=== PATIENT | female | born 1980 | race Caucasian/White ===

== ENCOUNTER 2023-01-28 20:28 | Observation (INO) | payer BC, MEDICAID ==
[~2023-01-28] VITALS: Ht 165.1 cm; Wt 98.4 kg
[2023-01-28] MEDS ORDERED: ONDANSETRON HCL 4 MG/2 ML VIAL IVP PRN (21:15)
[2023-01-28] MEDS ORDERED: D5/0.45 NS 1,000 ML IV SCH (21:15)
[2023-01-28] MEDS ORDERED: HYDROmorphone 1 MG/ML INJ. CARTRIDGE IVP PRN (21:15)
[2023-01-28] MEDS ORDERED: BETAMET ACET/BETAMET NA PH 30 MG/5 ML VIAL IM ONE (21:15)
[2023-01-28 22:02] LABS: BILIRUBIN,URINE 1+ (NEGATIVE); BLOOD, URINE NEGATIVE (NEGATIVE); CLARITY/URINE HAZY (CLEAR); COLOR,URINE YELLOW (YELLOW); GLUCOSE,URINE NEGATIVE (NEGATIVE); KETONES,URINE 3+ (NEGATIVE); LEUKOCYTE ESTERASE ,URINE 1+ (NEGATIVE); NITRITE, URINE NEGATIVE (NEGATIVE); PROTEIN URINE 2+ (NEGATIVE); UROBILINOGEN,URINE 0.2 (0.2-1.0)
[2023-01-28 22:04] LABS: BACTERIA,URINE FEW /HPF (None Seen); CALCIUM OXALATE CRYSTALS,UR 0-10 /HPF (None Seen); RBC,URINE 0-3 /HPF (0-3)
[2023-01-28 22:05] LABS: MUCUS,URINE None Seen /LPF (None Seen)
[2023-01-28] MEDS ORDERED: TEMAZEPAM 7.5 MG CAPSULE PO PRN (22:45)
[2023-01-28] MEDS ORDERED: NITROFURANTOIN MONOHYD/M-CRYST 100 MG CAPSULE (MacroBID) PO ONE (22:45)
[2023-01-28] MEDS: MORPHINE SULFATE 10 MG/ML VIAL IM PRN (22:56)
[2023-01-29] MEDS: D5/0.45 NS 1,000 ML IV SCH ×2 (02:32→22:16)
[2023-01-29] MEDS: MORPHINE SULFATE 10 MG/ML VIAL IM PRN ×3 (03:02→19:47)
[2023-01-29 07:46] LABS: HEMOGLOBIN 8.9 g/dL (12.0-16.0); LYMPHOCYTES # (AUTO) 0.5 K/uL (1.0-5.5); LYMPHOCYTES % (AUTO) 3.2 % (20.5-51.5); MEAN CORPUSCULAR HEMOGLOBIN 32 pg (27-31); MEAN CORPUSCULAR HGB CONC 34 % (32-36); MEAN CORPUSCULAR VOLUME 94 fL (79.0-98.0); MONOCYTES # (AUTO) 1.2 K/uL (0.0-1.0); MONOCYTES % (AUTO) 7.5 % (1.7-9.3); NEUTROPHILS # (AUTO) 14.3 K/uL (1.8-7.7); NEUTROPHILS % (AUTO) 89.3 % (40.0-70.0); PLATELET COUNT (AUTO) 169 K/uL (130-430); RED BLOOD CELL COUNT(AUTO) 2.76 MIL/uL (4.2-6.2); RED CELL DISTRIBUTION WIDTH 15.9 % (9.0-15.0); WHITE BLOOD COUNT (AUTO) 16.1 K/uL (4.8-10.8)
[2023-01-29 08:10] VITALS: BP_SYST 107
[2023-01-29 08:13] LABS: ALBUMIN 2.1 g/dL (3.4-4.8); CREATININE 1.35 mg/dL (0.55-1.30); TOTAL BILIRUBIN 0.6 mg/dL (0.0-1.0)
[2023-01-29] MEDS: NITROFURANTOIN MONOHYD/M-CRYST 100 MG CAPSULE (MacroBID) PO SCH (21:44)
[2023-01-29] MEDS ORDERED: BETAMET ACET/BETAMET NA PH 30 MG/5 ML VIAL IM ONE (21:45)
[2023-01-30] MEDS ORDERED: NS IRRIG SOLN 1000 ML IR ONE (09:00)
[2023-01-30] MEDS ORDERED: LIDOCAINE/EPI 1% 1:100000 20 ML VIAL INJ ONE (09:00)
[2023-01-30] MEDS: NITROFURANTOIN MONOHYD/M-CRYST 100 MG CAPSULE (MacroBID) PO SCH ×2 (09:20→22:23)
[2023-01-30] MEDS: MORPHINE SULFATE 10 MG/ML VIAL IM PRN ×2 (10:54→19:02)
[2023-01-30] MEDS ORDERED: PHYTONADIONE 1 MG/0.5 ML SYR IM ONE (19:45)
[2023-01-30] MEDS ORDERED: HEPATITIS B VIRUS VACCINE-PF PED 10 MCG/0.5 ML I.M. ONE (19:45)
[2023-01-30] MEDS ORDERED: ERYTHROMYCIN BASE 0.5% EYE OINT...G. OP ONE (19:45)
[2023-01-30] MEDS ORDERED: TEMAZEPAM 15 MG CAPSULE PO PRN (22:45)
[2023-01-31] MEDS: MORPHINE SULFATE 10 MG/ML VIAL IM PRN ×2 (01:36→13:44)
[2023-01-31] MEDS: D5/0.45 NS 1,000 ML IV SCH (04:43)
[2023-01-31] MEDS: NITROFURANTOIN MONOHYD/M-CRYST 100 MG CAPSULE (MacroBID) PO SCH (09:13)
== END 2023-01-31 17:30 | disposition home or self-care (01) ==
LOC: SPU 20:28
PROVIDERS: ADMIT Specialist; ATTEND Specialist
DX: O26.893 Other specified pregnancy related conditions, third trimester (principal); Z20.822 Contact with and (suspected) exposure to COVID-19; R10.9 Unspecified abdominal pain; O21.2 Late vomiting of pregnancy; O99.891 Other specified diseases and conditions complicating pregnancy; M54.50 Low back pain, unspecified; O30.003 Twin pregnancy, unspecified number of placenta and unspecified number of amniotic sacs, third trimester; Z3A.30 30 weeks gestation of pregnancy; Z88.0 Allergy status to penicillin
CPT/HCPCS: 96361 ×4; 96372 ×4; 81000; 87086; 80053; 85025; 36415 ×2; 76770; 96374; 87426; J0702; J2270 ×4; G0378 ×4; J1170

== ENCOUNTER 2023-02-02 15:49 | Inpatient (IN) | payer BC ==
[~2023-02-02] VITALS: Ht 165.1 cm; Wt 98.0 kg
[2023-02-02] MEDS ORDERED: D5/0.45 NS 1,000 ML IV ONE (17:30)
[2023-02-02] MEDS ORDERED: NALOXONE HCL 0.4 MG/ML AMP (NARCAN) IVP PRN (17:30)
[2023-02-02] MEDS: MORPHINE SULFATE 10 MG/ML VIAL IM PRN ×2 (17:38→22:07)
[2023-02-02 17:45] LABS: COLOR,URINE YELLOW (YELLOW); GLUCOSE,URINE NEGATIVE (NEGATIVE); KETONES,URINE 3+ (NEGATIVE); LEUKOCYTE ESTERASE ,URINE 1+ (NEGATIVE); NITRITE, URINE NEGATIVE (NEGATIVE); PROTEIN URINE TRACE (NEGATIVE); UROBILINOGEN,URINE 0.2 (0.2-1.0)
[2023-02-02 18:03] LABS: BASOPHILS % (AUTO) 0.1 % (0.0-2.0); EOSINOPHILS % (AUTO) 0.3 % (0.0-4.0); HEMATOCRIT 26.1 % (36-48); HEMOGLOBIN 9.1 g/dL (12.0-16.0); LYMPHOCYTES # (AUTO) 1.4 K/uL (1.0-5.5); LYMPHOCYTES % (AUTO) 12.9 % (20.5-51.5); MEAN CORPUSCULAR HEMOGLOBIN 33 pg (27-31); MEAN CORPUSCULAR HGB CONC 35 % (32-36); MEAN CORPUSCULAR VOLUME 93 fL (79.0-98.0); MONOCYTES % (AUTO) 9.8 % (1.7-9.3); NEUTROPHILS # (AUTO) 8.1 K/uL (1.8-7.7); NEUTROPHILS % (AUTO) 76.9 % (40.0-70.0); PLATELET COUNT (AUTO) 168 K/uL (130-430); RED CELL DISTRIBUTION WIDTH 15.7 % (9.0-15.0); WHITE BLOOD COUNT (AUTO) 10.5 K/uL (4.8-10.8)
[2023-02-02 18:04] LABS: BILIRUBIN,URINE NEGATIVE (NEGATIVE); BLOOD, URINE TRACE (NEGATIVE); CLARITY/URINE SLIGHTLY HAZY (CLEAR)
[2023-02-02 18:15] LABS: BACTERIA,URINE FEW /HPF (None Seen); MUCUS,URINE 1+ /LPF (None Seen); RBC,URINE 0-3 /HPF (0-3)
[2023-02-02 18:25] LABS: CALCIUM 8.3 mg/dL (8.4-11.0); TOTAL BILIRUBIN 0.5 mg/dL (0.0-1.0)
[2023-02-02 18:41] VITALS: BP_SYST 132
[2023-02-03] MEDS: D5/0.45 NS 1,000 ML IV SCH ×2 (02:49→13:22)
[2023-02-03] MEDS: MORPHINE SULFATE 10 MG/ML VIAL IM PRN ×4 (03:06→20:32)
[2023-02-03] MEDS: DOCUSATE SODIUM 100 MG CAPSULE PO SCH (10:35)
[2023-02-03] MEDS ORDERED: SENNOSIDES 8.6 MG TABLET PO ONE (14:15)
[2023-02-03 15:47] LABS: BILIRUBIN,URINE NEGATIVE (NEGATIVE); BLOOD, URINE 1+ (NEGATIVE); CLARITY/URINE CLEAR (CLEAR); COLOR,URINE YELLOW (YELLOW); GLUCOSE,URINE NEGATIVE (NEGATIVE); KETONES,URINE NEGATIVE (NEGATIVE); LEUKOCYTE ESTERASE ,URINE 1+ (NEGATIVE); NITRITE, URINE NEGATIVE (NEGATIVE); PH,URINE 6.5 (5.0-8.0); PROTEIN URINE NEGATIVE (NEGATIVE)
[2023-02-03 16:26] LABS: BACTERIA,URINE FEW /HPF (None Seen)
[2023-02-03 16:27] LABS: MUCUS,URINE None Seen /LPF (None Seen)
[2023-02-03] MEDS: SENNOSIDES 8.6 MG TABLET PO SCH (20:31)
[2023-02-03] MEDS ORDERED: SENNOSIDES 8.6 MG TABLET PO SCH (21:00)
[2023-02-04] MEDS: MORPHINE SULFATE 10 MG/ML VIAL IM PRN ×3 (03:22→19:32)
[2023-02-04] MEDS: D5/0.45 NS 1,000 ML IV SCH ×3 (06:45→19:37)
[2023-02-04] MEDS: SENNOSIDES 8.6 MG TABLET PO SCH (21:00)
[2023-02-05] MEDS: SENNOSIDES 8.6 MG TABLET PO SCH ×3 (02:48→20:38)
[2023-02-05] MEDS: D5/0.45 NS 1,000 ML IV SCH (06:45)
[2023-02-05] MEDS: MORPHINE SULFATE 10 MG/ML VIAL IM PRN ×2 (06:54→17:35)
[2023-02-05] MEDS: DOCUSATE SODIUM 100 MG CAPSULE PO SCH (09:30)
[2023-02-05] MEDS ORDERED: BISACODYL 10 MG/SUPPOSITORY RC PRN (16:00)
[2023-02-05] MEDS ORDERED: PHENYLEPH/MINERAL OIL/PETROLAT 57 GM OINT.APPL TP PRN (20:15)
[2023-02-06] MEDS: MORPHINE SULFATE 10 MG/ML VIAL IM PRN ×2 (03:30→20:52)
[2023-02-06] MEDS: TAMSULOSIN HCL 0.4 MG CAP PO SCH (08:27)
[2023-02-07] MEDS: TAMSULOSIN HCL 0.4 MG CAP PO SCH (09:21)
[2023-02-07] MEDS ORDERED: HYDROcodone/ACETAMIN 10-325 MG TAB PO PRN (12:15)
[2023-02-07] MEDS ORDERED: NALOXONE HCL 0.4 MG/ML AMP (NARCAN) IVP PRN (12:15)
[2023-02-07] MEDS: SENNOSIDES 8.6 MG TABLET PO SCH (20:30)
[2023-02-08] MEDS: SENNOSIDES 8.6 MG TABLET PO SCH (08:41)
[2023-02-08] MEDS: TAMSULOSIN HCL 0.4 MG CAP PO SCH (08:59)
[2023-02-08] MEDS: HYDROcodone/ACETAMIN 5-325 MG TAB (NORCO/ VICODIN) PO PRN (09:03)
[2023-02-09] MEDS: HYDROcodone/ACETAMIN 5-325 MG TAB (NORCO/ VICODIN) PO PRN ×3 (00:01→21:13)
[2023-02-09] MEDS: TAMSULOSIN HCL 0.4 MG CAP PO SCH (08:51)
[2023-02-10] MEDS: TAMSULOSIN HCL 0.4 MG CAP PO SCH (09:11)
[2023-02-11] MEDS: TAMSULOSIN HCL 0.4 MG CAP PO SCH (08:42)
== END 2023-02-11 11:44 | disposition home or self-care (01) | DRG 832 ==
LOC: OBSVTOIN 16:30 → SPU 16:30
PROVIDERS: ADMIT Specialist; ATTEND Specialist
DX: O30.003 Twin pregnancy, unspecified number of placenta and unspecified number of amniotic sacs, third trimester (principal); N13.30 Unspecified hydronephrosis; O26.833 Pregnancy related renal disease, third trimester; N23 Unspecified renal colic; Z20.822 Contact with and (suspected) exposure to COVID-19; Z3A.31 31 weeks gestation of pregnancy; Z88.6 Allergy status to analgesic agent; Z88.0 Allergy status to penicillin
CPT/HCPCS: 36415; 76770; 80053; 81000; 85025; 87086; J2270

== ENCOUNTER 2023-03-19 05:04 | Inpatient (IN) | payer BC ==
[~2023-03-19] VITALS: Ht 162.6 cm; Wt 101.6 kg
[2023-03-19] MEDS ORDERED: NALBUPHINE HCL 10 MG/ML AMP IVP PRN (06:15)
[2023-03-19] MEDS ORDERED: TERBUTALINE SULFATE 1 MG/ML VIAL SUBCUT ONE (06:15)
[2023-03-19 06:35] VITALS: BP_SYST 126
[2023-03-19 06:37] LABS: BASOPHILS % (AUTO) 0.1 % (0.0-2.0); EOSINOPHILS # (AUTO) 0.1 K/uL (0.0-0.4); EOSINOPHILS % (AUTO) 1.1 % (0.0-4.0); HEMATOCRIT 26.3 % (36-48); LYMPHOCYTES # (AUTO) 1.4 K/uL (1.0-5.5); LYMPHOCYTES % (AUTO) 23.3 % (20.5-51.5); MEAN CORPUSCULAR HEMOGLOBIN 31 pg (27-31); MEAN CORPUSCULAR HGB CONC 34 % (32-36); MEAN CORPUSCULAR VOLUME 92 fL (79.0-98.0); MONOCYTES # (AUTO) 0.6 K/uL (0.0-1.0); MONOCYTES % (AUTO) 9.3 % (1.7-9.3); NEUTROPHILS # (AUTO) 3.9 K/uL (1.8-7.7); NEUTROPHILS % (AUTO) 66.2 % (40.0-70.0); PLATELET COUNT (AUTO) 172 K/uL (130-430); RED BLOOD CELL COUNT(AUTO) 2.87 MIL/uL (4.2-6.2); RED CELL DISTRIBUTION WIDTH 15.1 % (9.0-15.0)
[2023-03-19] MEDS: OXYTOCIN/0.9 % SODIUM CHLORIDE 1,000 ML IV SCH (08:32)
[2023-03-19] MEDS: LR 1,000 ML IV SCH ×3 (10:15→18:37)
[2023-03-19] MEDS ORDERED: LIGHT MINERAL OIL 10 ML VIAL MC ONE (14:04)
[2023-03-19] MEDS ORDERED: LIDOCAINE PF 1% 30ML(POUR BTL) INJ ONE (14:04)
[2023-03-19] MEDS ORDERED: ROPIVACAINE HCL/PF 0.2% 200 ML ONE (14:05)
[2023-03-19] MEDS ORDERED: NALOXONE HCL 0.4 MG/ML AMP (NARCAN) ONE (14:05)
[2023-03-19] MEDS ORDERED: fentaNYL CITRATE/PF 100 MCG/2 ML AMP ONE (14:05)
[2023-03-19] MEDS ORDERED: FENT2mCg/mL-ROPIVA0.2%/NS EPID 200 ML EP SCH (15:30)
[2023-03-19] MEDS ORDERED: LR 500 ML IV ONE (15:30)
[2023-03-19] MEDS ORDERED: HYDROcodone/ACETAMIN 5-325 MG TAB (NORCO/ VICODIN) PO PRN (22:45)
[2023-03-20] MEDS: LR 1,000 ML IV SCH (00:05)
[2023-03-20] MEDS ORDERED: ROPIVACAINE HCL/PF 0.2% 200 ML ONE (01:05)
[2023-03-20] MEDS ORDERED: CLINDAMYCIN 900 mg/50mL D5W 50 ML IV ONE (02:11)
[2023-03-20] MEDS ORDERED: CLINDAMYCIN 900 MG in D5W 100 ML IV SCH (02:15)
[2023-03-20] MEDS: OXYTOCIN/0.9 % SODIUM CHLORIDE 1,000 ML IV SCH (02:16)
[2023-03-20] MEDS ORDERED: CEFAZOLIN 2 GM IVPB PREMIX 50 ML IV ONE (04:30)
[2023-03-20] MEDS: HYDROmorphone 2 MG/ML VIAL IVP PRN ×2 (04:59→19:24)
[2023-03-20] MEDS ORDERED: METHYLERGONOVINE MALEATE 0.2 MG/ML AMP IM ONE (05:00)
[2023-03-20 05:02] LABS: BILIRUBIN,URINE 1+ (NEGATIVE); BLOOD, URINE 3+ (NEGATIVE); CLARITY/URINE SL CLOUDY (CLEAR); GLUCOSE,URINE NEGATIVE (NEGATIVE); KETONES,URINE 1+ (NEGATIVE); LEUKOCYTE ESTERASE ,URINE TRACE (NEGATIVE); NITRITE, URINE POSITIVE (NEGATIVE); PROTEIN URINE 3+ (NEGATIVE)
[2023-03-20 05:07] LABS: COLOR,URINE AMBER (YELLOW)
[2023-03-20 05:37] LABS: RBC,URINE >100 /HPF (0-3)
[2023-03-20 05:38] LABS: BACTERIA,URINE MANY /HPF (None Seen)
[2023-03-20] MEDS ORDERED: OXYTOCIN/0.9 % SODIUM CHLORIDE 1,000 ML IV SCH ×2 (06:15→10:15)
[2023-03-20] MEDS ORDERED: METHYLERGONOVINE MALEATE 0.2 MG/ML AMP ONE (08:05)
[2023-03-20] MEDS ORDERED: LANOLIN 7 GM OINT. TP PRN (08:45)
[2023-03-20] MEDS ORDERED: HYDROcodone/ACETAMIN 5-325 MG TAB (NORCO/ VICODIN) PO PRN (08:45)
[2023-03-20] MEDS ORDERED: MEASLES,MUMPS&RUBELLA VACC/PF 12500 UNIT/0.5 ML VIAL SUBQ PRN (08:45)
[2023-03-20] MEDS ORDERED: DIPHTH,PERTUSS(ACELL),TET VAC 0.5 ML VIAL (Tdap) I.M. PRN (08:45)
[2023-03-20] MEDS ORDERED: OXYTOCIN/0.9 % SODIUM CHLORIDE 1,000 ML IV ONE (08:45)
[2023-03-20] MEDS ORDERED: SIMETHICONE 80 MG TAB.CHEW PO PRN (08:45)
[2023-03-20] MEDS ORDERED: NALOXONE HCL 0.4 MG/ML AMP (NARCAN) IVP PRN ×3 (08:45→09:15)
[2023-03-20] MEDS ORDERED: BISACODYL 10 MG/SUPPOSITORY RC PRN (08:45)
[2023-03-20] MEDS ORDERED: RHO(D) IMMUNE GLOBULIN/MALTOSE 1500 UNITS/1.3 ML (WINHRO) IM PRN (08:45)
[2023-03-20 08:57] LABS: HEMATOCRIT 26.5 % (36-48); HEMOGLOBIN 8.7 g/dL (12.0-16.0); LYMPHOCYTES # (AUTO) 0.7 K/uL (1.0-5.5); LYMPHOCYTES % (AUTO) 5.1 % (20.5-51.5); MEAN CORPUSCULAR HEMOGLOBIN 31 pg (27-31); MEAN CORPUSCULAR HGB CONC 33 % (32-36); MEAN CORPUSCULAR VOLUME 93 fL (79.0-98.0); MONOCYTES % (AUTO) 6.8 % (1.7-9.3); NEUTROPHILS # (AUTO) 12.5 K/uL (1.8-7.7); NEUTROPHILS % (AUTO) 88.1 % (40.0-70.0); PLATELET COUNT (AUTO) 171 K/uL (130-430); RED BLOOD CELL COUNT(AUTO) 2.84 MIL/uL (4.2-6.2); RED CELL DISTRIBUTION WIDTH 14.9 % (9.0-15.0); WHITE BLOOD COUNT (AUTO) 14.2 K/uL (4.8-10.8)
[2023-03-20 08:59] VITALS: BP_SYST 146
[2023-03-20] MEDS ORDERED: NS IRRIG SOLN 1000 ML IR ONE (09:05)
[2023-03-20] MEDS ORDERED: LIDOCAINE/EPI 1% 1:100000 20 ML VIAL ONE (09:05)
[2023-03-20] MEDS ORDERED: ePHEDrine sulfate 50 MG/ML VIAL ONE (09:05)
[2023-03-20] MEDS ORDERED: WATER FOR IRRIGATION,STERILE 1,000 ML IRRIG.SOLN IR ONE (09:05)
[2023-03-20] MEDS ORDERED: fentaNYL CITRATE/PF 100 MCG/2 ML AMP IVP ONE (09:05)
[2023-03-20] MEDS ORDERED: LR 1,000 ML IV.SOLN IV ONE (09:05)
[2023-03-20] MEDS ORDERED: ONDANSETRON HCL 4 MG/2 ML VIAL ONE (09:05)
[2023-03-20] MEDS ORDERED: METOCLOPRAMIDE HCL 10 MG/2 ML VIAL ONE (09:05)
[2023-03-20] MEDS ORDERED: BUPIVACAINE /PF 0.75% 10 ML VIAL INJ ONE (09:05)
[2023-03-20] MEDS ORDERED: MORPHINE SULFATE 10MG/10ML PF AMP EP ONE (09:05)
[2023-03-20] MEDS ORDERED: METOCLOPRAMIDE HCL 10 MG/2 ML VIAL IVP PRN (09:15)
[2023-03-20] MEDS ORDERED: ONDANSETRON HCL 4 MG/2 ML VIAL IVP PRN ×2 (09:15)
[2023-03-20] MEDS ORDERED: HYDROmorphone 1 MG/ML INJ. CARTRIDGE IVP PRN (09:15)
[2023-03-20] MEDS ORDERED: MEPERIDINE HCL/PF 25 MG/ML DISP.SYRIN IVP PRN ×3 (09:15→18:45)
[2023-03-20] MEDS ORDERED: DIPHENHYDRAMINE INJ 50 MG/ML VIAL IM PRN (09:15)
[2023-03-20] MEDS ORDERED: OXYTOCIN IV SCH (10:30)
[2023-03-20] MEDS ORDERED: LR IV SCH (10:30)
[2023-03-20] MEDS ORDERED: METHYLERGONOVINE MALEATE IV SCH (10:30)
[2023-03-20] MEDS: CLINDAMYCIN 600 mg/50mL D5W 50 ML IV SCH ×2 (12:00→18:17)
[2023-03-20 18:22] LABS: BASOPHILS % (AUTO) 0.2 % (0.0-2.0); EOSINOPHILS % (AUTO) 0.1 % (0.0-4.0); HEMOGLOBIN 8.9 g/dL (12.0-16.0); LYMPHOCYTES # (AUTO) 1.6 K/uL (1.0-5.5); LYMPHOCYTES % (AUTO) 10.9 % (20.5-51.5); MEAN CORPUSCULAR HEMOGLOBIN 31 pg (27-31); MEAN CORPUSCULAR HGB CONC 34 % (32-36); MONOCYTES # (AUTO) 1.1 K/uL (0.0-1.0); MONOCYTES % (AUTO) 7.4 % (1.7-9.3); NEUTROPHILS # (AUTO) 12.3 K/uL (1.8-7.7); NEUTROPHILS % (AUTO) 81.4 % (40.0-70.0); PLATELET COUNT (AUTO) 149 K/uL (130-430); RED BLOOD CELL COUNT(AUTO) 2.91 MIL/uL (4.2-6.2); RED CELL DISTRIBUTION WIDTH 16.4 % (9.0-15.0); WHITE BLOOD COUNT (AUTO) 15.1 K/uL (4.8-10.8)
[2023-03-20 18:23] LABS: MEAN CORPUSCULAR VOLUME 89 fL (79.0-98.0)
[2023-03-20] MEDS ORDERED: TEMAZEPAM 15 MG CAPSULE PO PRN (21:00)
[2023-03-21] MEDS ORDERED: CLINDAMYCIN 900 MG in D5W 100 ML IV ONE (00:45)
[2023-03-21] MEDS ORDERED: CLINDAMYCIN 900 mg/50mL D5W 50 ML IV ONE (00:53)
[2023-03-21] MEDS: SIMETHICONE 80 MG TAB.CHEW PO SCH ×3 (04:14→21:17)
[2023-03-21] MEDS: OXYCODONE/ACETAMINOPHEN 5-325 TABLET PO PRN ×3 (04:15→21:14)
[2023-03-21 07:08] LABS: BASOPHILS % (AUTO) 0.1 % (0.0-2.0); EOSINOPHILS % (AUTO) 0.2 % (0.0-4.0); HEMATOCRIT 22.6 % (36-48); HEMOGLOBIN 7.6 g/dL (12.0-16.0); LYMPHOCYTES # (AUTO) 0.9 K/uL (1.0-5.5); LYMPHOCYTES % (AUTO) 8.8 % (20.5-51.5); MEAN CORPUSCULAR HEMOGLOBIN 30 pg (27-31); MEAN CORPUSCULAR HGB CONC 34 % (32-36); MEAN CORPUSCULAR VOLUME 90 fL (79.0-98.0); MONOCYTES # (AUTO) 0.7 K/uL (0.0-1.0); MONOCYTES % (AUTO) 6.8 % (1.7-9.3); NEUTROPHILS % (AUTO) 84.1 % (40.0-70.0); PLATELET COUNT (AUTO) 133 K/uL (130-430); RED BLOOD CELL COUNT(AUTO) 2.52 MIL/uL (4.2-6.2); RED CELL DISTRIBUTION WIDTH 16.2 % (9.0-15.0); WHITE BLOOD COUNT (AUTO) 10.7 K/uL (4.8-10.8)
[2023-03-21] MEDS: DOCUSATE SODIUM 100 MG CAPSULE PO SCH ×3 (09:00→21:16)
[2023-03-21] MEDS: SENNOSIDES/DOCUSATE SODIUM 1 TAB TABLET(SENOKOT-S) PO SCH (21:15)
[2023-03-21] MEDS: CIPROFLOXACIN HCL 500 MG TABLET PO SCH (22:55)
[2023-03-22] MEDS: SIMETHICONE 80 MG TAB.CHEW PO SCH ×6 (00:56→21:38)
[2023-03-22] MEDS: OXYCODONE/ACETAMINOPHEN 5-325 TABLET PO PRN ×4 (03:09→21:36)
[2023-03-22] MEDS: DOCUSATE SODIUM 100 MG CAPSULE PO SCH ×2 (09:07→21:30)
[2023-03-22] MEDS: CIPROFLOXACIN HCL 500 MG TABLET PO SCH ×2 (10:14→21:40)
[2023-03-23] MEDS: SIMETHICONE 80 MG TAB.CHEW PO SCH ×5 (02:07→22:57)
[2023-03-23] MEDS ORDERED: WITCH HAZEL LEAF 1 MED.PAD MED.PAD TP PRN (05:15)
[2023-03-23] MEDS ORDERED: HYDROCORTISONE 2.5%, 30 GM TOPICAL CREAM TP PRN (05:15)
[2023-03-23] MEDS ORDERED: HYDROCORTISONE ACETATE 1 SUPP (ANUSOL HC) RC PRN (05:45)
[2023-03-23] MEDS: OXYCODONE/ACETAMINOPHEN 5-325 TABLET PO PRN ×3 (07:26→21:11)
[2023-03-23] MEDS: DOCUSATE SODIUM 100 MG CAPSULE PO SCH ×2 (11:34→21:12)
[2023-03-23] MEDS: CIPROFLOXACIN HCL 500 MG TABLET PO SCH (11:34)
[2023-03-23] MEDS ORDERED: NITROFURANTOIN MONOHYD/M-CRYST 100 MG CAPSULE (MacroBID) PO SCH (21:00)
[2023-03-23] MEDS: SENNOSIDES/DOCUSATE SODIUM 1 TAB TABLET(SENOKOT-S) PO SCH (21:12)
[2023-03-24] MEDS: SIMETHICONE 80 MG TAB.CHEW PO SCH ×3 (03:00→11:04)
[2023-03-24] MEDS: OXYCODONE/ACETAMINOPHEN 5-325 TABLET PO PRN ×2 (03:00→12:49)
[2023-03-24] MEDS ORDERED: OXYC-128 PO (12:21)
== END 2023-03-24 13:24 | disposition home or self-care (01) | DRG 787 ==
LOC: SPU 05:04
PROVIDERS: ADMIT Specialist; ATTEND Specialist
PROC: 30233N1 Transfusion of Nonautologous Red Blood Cells into Peripheral Vein, Percutaneous Approach (ICD-10-PCS; 2023-03-20)
PROC: 10D00Z1 Extraction of Products of Conception, Low, Open Approach (ICD-10-PCS; principal; 2023-03-20 07:30)
DX: O30.003 Twin pregnancy, unspecified number of placenta and unspecified number of amniotic sacs, third trimester (principal); O72.1 Other immediate postpartum hemorrhage; O24.420 Gestational diabetes mellitus in childbirth, diet controlled; E66.01 Morbid (severe) obesity due to excess calories; Z37.2 Twins, both liveborn; Z3A.37 37 weeks gestation of pregnancy; Z88.0 Allergy status to penicillin; Z88.8 Allergy status to other drugs, medicaments and biological substances; O32.4XX0 Maternal care for high head at term, not applicable or unspecified
CPT/HCPCS: 36415; 81000; 81002; 82962; 85025; 86592; 86886; 86900; 86901; 86920; 87086; 87186-TC; 94760; J0690; J1170; J2001; J2175; J2210; J2274; J2300; J2310; J2405; J2590; J2765; J3010; J3490; J7060; J7120; P9021